=== PATIENT | male | born 1990 | race Caucasian/White ===

== ENCOUNTER 2016-09-29 07:48 | Emergency (ER) | payer SELFPAY ==
[~2016-09-29] VITALS: Ht 188 cm; Wt 86.2 kg
[~2016-09-29 07:48] MED LIST: BACTRIM DS 8001 TA1 PO; BACTRIM DS 8001 TAB PO; BACTROBAN22 TP; CLINDAMYCIN HC300 MG PO; FLEXERIL10 MG PO; LORTAB 5/500 501 TAB PO; MOBIC7.5 MG PO; NOMEDS *; SEPTRA DS 800 M1 TAB PO; VICODIN 5/500 T1 TAB PO; VOLTAREN75 MG PO
--- NOTE | 2016-09-29 08:15 | Emergency Room Report ---
History of Present Illness Time Seen by MD Mcmahan Presenting Problem in Triage Pt arrived:Walked Presenting Problem:PT C/O LEFT ANKLE PAIN, SWELLING, AND REDNESS. PT ADVISES HE STEPPED OFF A CURB 4-5 DAYS AND HE'S NOT SURE IF THAT'S WHAT'S CAUSED IT OR NOT. 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 N Clinical Suspician of Infection? N Mental Status: 1 - Regular (Normal Baseline) Sepsis Risk:Low Sepsis Risk Have you (or family members/close friends) recently traveled outside the [place]? N If Yes, where/when: Have you had exposure to infectious disease within the past month? N TB? Other? Specify: states that 2 days ago he noticed redness in his ankle and now is having pain with motion of the ankle he states he did twisted a little bit several days ago but didn't think much of it. He denies any fevers or chills he states he has spreading redness in his ankle for the past 2 days and that this morning it's getting worse. States he has pain with any motion of the left ankle. Moderate and achy no radiation does have spreading redness going up his lower leg. Comment 956am daryn Sumner the pain with passive motion of the ankle, the cellulitis over both malleoli going up calf, pt nt over anterior tibial/talar joint, she daryn [place], they desire outpatient, return if worse over weekend, followup in office sunday. we have outline in pen the cellulitis ALLERGIES Coded Allergies: No Known Allergies (04/27/16) Home Medications Active Scripts SULFAMETHOXAZOLE W/TRIMETHOPRI (Bactrim Ds Tab) 1 TAB PO BID #20 TAB Prov: 04/27/16 Reported Medications Meloxicam (Mobic 7.5MG) 7.5 MG PO DAILY History Medical History General CAD? No Angina: No CO: No Hypertension? No Hyperlipidemia? No CHF? No DVT? No PE? No COPD? No Asthma? No Anemia? No GERD? No Gastric ulcers? No GI Bleed? No Hernia? No Thyroid Problems? No Hypothyroidism? No CVA? No Seizures? No Diabetes? No Renal Insuffiency? No End Stage Renal Disease? No UTI? No Stones? No BPH? No GB Disease: No Nephritic Syndrome? No Asplenia? No Hepatitis? No Sickle Cell Disease? No Arthritis? No Migraines? No Cataracts? No Glaucoma? No MRSA? Yes HIV? No TB? No Anxiety? No Depression? No Cancer? No More? No Immunization Hx DT/Tetanus > 10 YRS Flu NEVER Pneumonia NEVER Surgical Hx Previous Surgery?Y SURGERY TO R SHOULDER Family History Family Hx Diabetes Yes CAD Yes Hypertension Yes Hyperlipidemia Yes Cancer Yes TB No Social History Smoking Hx Smoker: Current Every Day Smoker Tobacco: Yes Type Cigarettes Packs/day < 1 Pack Alcohol Alcohol: No Review of Systems All Other Systems Reviewed and Negative Physical Exam Vital Signs Vital Signs Date Time Temp Pulse Resp B/P Pulse O2 O2 Flow FiO2 Ox Delivery Rate 09/29 0752 98.2 122 18 155/63 98 General Appearance: Nontoxic Head: Normocephalic, without obvious abnormality, atraumatic. Eyes: conjunctiva/corneas clear ENT: Mucous membranes moist. Neck: No jugular venous distention. Cardiac: regular rate and rhythm Lungs: Clear to auscultation bilaterally Extremities: no edema Musculoskeletal: No chest wall tenderness Patient has redness around his LEFT ankle area. Patient does not have any tenderness with palpation of the anterior part of the tibiotalar joint. Patient does have pain with motion of his ankle he states overlying his Achilles area. Skin: No rashes or lesions to exposed skin. Patient has cellulitis that wraps around both malleoli and goes up to about one third [address] the way posteriorly of his calf, blanching warm cellulitis. 2+ pulses capillary refill intact Sensation intact Neurologic: Alert. No gross focal deficits Psychiatric: Normal affect (Grace MCKENNA, Jason) General Appearance normal appearance Respiratory Status No: respiratory distress. Cardiovascular normal exam Neurologic alert Medical Decision Making LABS/Meds/Orders Pt receiving controlled substance in ED? No Comment 840 pt RN relates track bowman, that pt is drug user, pt denies injection in leg 947am call out to PMD Results/Orders Laboratory Tests 09/29/16 0830: Lactic Acid 1.3 09/29/16 0830: Sodium 135 L, Potassium 3.7, Chloride 94 L, Carbon Dioxide 33 H, BUN 16, Creatinine 0.9, Estimated Creat Clear 150, Estimated GFR (MDRD) 101, Glucose 96, Calcium 9.3, WBC 8.4, RBC 4.79, Hgb 15.3, Hct 43.1, MCV 89.9, RDW 13.2, Plt Count 229, MPV 6.0 L, Gran % 72.3, Gran # 6.1, Lymphocytes % 16.6, Monocytes % 9.8 H, Eosinophils % 1.1, Basophils % 0.3, Lymphocytes # 1.4, Monocytes # 0.8, Eosinophils # 0.1, Basophils # 0.0, PUBS MCHC 35.5 H, MCH 31.9 H Current Medication Orders Sig/Kate Start time Last Medication Dose Route Stop Time Status Admin Diphtheria/Pertussis/ 0.5 ML ONCE ONE 09/29 0845 DC Tetanus Vacc IM 09/29 0846 Miscellaneous 1 EACH ONCE ONE 09/29 0830 DC Information * 09/29 0831 Vancomycin HCl 1,750 MG ONCE ONE 09/29 0830 CKD 09/29 Sodium Chloride 250 ML IV 09/29 1029 0846 Sodium Chloride 10 ML PRN PRN 09/29 0815 AC IV 09/30 0815 Orders Procedure Date/time Status LACTIC ACID 09/29 0818 Complete IV SALINE LOCK 09/29 0816 Active CULTURE, BLOOD 09/29 0816 Active CBC WITH AUTO DIFF 09/29 0816 Complete BASIC METABOLIC PROFILE 09/29 0816 Complete XRAY/CT/US XRAY/CT/US XRAY ankle XR interpretation by reviewed by me Xray Results no fracture seen Departure Departure Time of Disposition 0958 Disposition DC Home or Self Care(routine) Clinical Impression Primary Impression: Cellulitis Qualifiers: Site of cellulitis: extremity Site of cellulitis of extremity: lower extremity Laterality: left Qualified Code: L03.116 - Cellulitis of left lower limb Condition STABLE Referrals Grabiel MCKENNA,Nehemias Harvey (Family) Patient Instructions DI for Cellulitis -- Adult Additional Instructions return if redness spreads beyond line, fever chills, worsening swelling or any problems to ER follow up with Grabiel in office sunday Discharge Counseling Counseled pt/family regarding diagnosis, test results, medications/RX, home care, follow up needs Prescriptions Current Visit Scripts CEPHALEXIN (Keflex 500MG Capsule) 500 MG PO QID #7 CAP SULFAMETHOXAZOLE W/TRIMETHOPRI (Bactrim Ds Tab) 1 TABLET PO BID #14 TAB ED Critical Care Critical Care No If Critical Care minutes are documented, the time involved in the performance of seperately reportable procedures was not counted toward critical care time documented. I directly delivered medical care to this critically ill and/or injured patient. Timely evaluation and treatment was necessary to address the significant organ system(s) dysfunction present in this patient. at 1002
--- NOTE | 2016-09-29 08:43 | RADIOLOGY REPORT PS360 ---
ANKLE-LT-3 VIEWS HISTORY: REDNESS, SWELLING, PAIN X5 DAYS ORDERING PHYSICIAN: Jason Edwards MD PATIENT AGE: 26 years COMPARISON: None FINDINGS: Mild soft tissue noted about the ankle joint. No fracture or dislocation. No lytic or blastic change. Joint space is well-preserved. The talar dome is unremarkable. IMPRESSION: Mild soft tissue swelling otherwise negative
[2016-09-29 08:54] LABS: LYMPH # 1.4 K/mm3 (0.7-4.5); LYMPH % 16.6 % (10-50)
[2016-09-29 08:59] LABS: HEMOGLOBIN 15.3 g/dL (14.1-18.0)
[2016-09-29] MEDS ORDERED: KEFLEX 500MG.500 MG PO (10:01)
[2016-09-29] MEDS ORDERED: BACTRIM DS 8001 TA1 PO (10:01)
[2016-09-29 10:54] VITALS: BP 132/64
== END 2016-09-29 10:54 | disposition home or self-care (01) ==
LOC: ER 07:48
PROVIDERS: Emergency Medicine
DX: L03.116 Cellulitis of left lower limb (principal)
CPT/HCPCS: J3370